=== PATIENT | female | born 1960 | race Asian ===

== ENCOUNTER 2021-08-29 14:29 | Emergency (ER) | payer MEDICAID ==
[~2021-08-29] VITALS: Ht 165.1 cm; Wt 95.5 kg
[2021-08-29 14:40] VITALS: BP 129/68
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
--- NOTE | 2021-08-29 15:53 | RAD ---
Single view chest and left-sided rib study dated 08/29/2021 COMPARISON: None INDICATION: Pain after injury. FINDINGS: Single PA view the chest shows normal heart and mediastinal contours. Lungs are somewhat hyperinflate d but otherwise clear. No consolidation or pleural effusion. No pneumothorax. Irregular views of left-sided ribs show no evidence of displaced left rib fracture. No acute bony abn ormality. IMPRESSION: 1. No acute radiographic abnormality. No evidence of displaced left rib fracture. Electronically signed by: Kong Bush MD (08/29/2021 3:50 PM) [facility]
== END 2021-08-29 16:45 | disposition home or self-care (01) ==
LOC: ER 14:29
DX: S20.212A Contusion of left front wall of thorax, initial encounter (principal); W22.8XXA Striking against or struck by other objects, initial encounter; Y93.89 Activity, other specified; Y92.89 Other specified places as the place of occurrence of the external cause; Y99.8 Other external cause status
CPT/HCPCS: 71101; 99283